=== PATIENT | male | born 1995 | race Caucasian/White ===

== ENCOUNTER 2019-09-11 10:52 | Day surgery (SDC) | payer OTHER, SELFPAY ==
[2014-04-11 15:57] VITALS: BMI 24.4
[2019-09-11] VITALS (8 sets, daily range): BP systolic 120–138; BP diastolic 53–90; PULSE 73–111; RESP 16–17; TEMP 36.8–37.3; O2SAT 92–100; BMI 27.7
--- NOTE | 2019-09-11 | APP_PTH ---
PATIENT: MANE TANG LOC: [facility] [place] U#:[id number] AGE/SX: 24/M ROOM: RE09/11/[address]: Dr. Alma Rosa Marinelli MD : 1995 BED: DIS: 09/11/2019 SPEC #: [id number] RECD: 09/11/19 17:00 STATUS: TEQUILA CHIP #: [id number] ZARIA: 09/11/19 00:[address]: Alma Rosa Marinelli DEPT: SURGICAL PATHOLOGY RECD BY: Luis Fernando Epsosito ENTERED: 09/12/19 07:50 SP TYPE: APPENDIX OTHR DR: Dr. Maksim Vegas III, MD Tissues: Appendix, NOS Procedures: Surgery Specimen Level III HEADER OPERATION: Laparoscopic appendectomy PRE-OP DIAGNOSIS: Acute appendicitis TISSUE SUBMITTED: Appendix MICROSCOPIC DIAGNOSIS Appendix: Acute appendicitis and periappendicitis. SJ:lucrecia 09/15/19 MICROSCOPIC DESCRIPTION Slides are reviewed. GROSS DESCRIPTION Received is one container labeled with the patient's name and designated appendix. The specimen consists of a vermiform appendix measuring 11 cm in length and 1 cm in average diameter. No gross perforations are evident. Serial sections reveal a patent lumen. Advanced Nursing Professor sections are submitted in one cassette. / AM:lucrecia 09/12/19 TC:2 CPT: 92674
--- NOTE | 2019-09-11 11:39 | CT_ITS ---
STUDY: CT ABDOMEN AND PELVIS WITH CONTRAST REASON FOR EXAM: Male, 24 years old. RLQ PAIN STARTED LAST NIGHT -- N/v, constipation RADIATION DOSAGE (If Supplied By Facility): CTDIvol = ( 12.35 ) mGy, DLP = ( 803.50 ) mGycm TECHNIQUE: Transaxial images were obtained from the dome of the diaphragm to the symphysis pubis without oral contrast. IV 100mL Isovue-300 was administered. Sagittal and coronal images were reconstructed. Individualized dose optimization techniques were used for this CT. COMPARISON: None. FINDINGS: Minimal degree of dependent bibasilar atelectasis. The visualized portions of the heart are within normal limits. Normal liver. Normal gallbladder and extrahepatic biliary system. Normal spleen. Normal pancreas. Normal bilateral adrenal glands. Normal right kidney. Normal left kidney. There is a small hiatal hernia. Normal small intestine. Normal colon. There is a tubular, thick-walled appendix (>7mm), consistent with acute appendicitis. The appendix is retrocecal sequel. Normal abdominal aorta. Normal inferior vena cava. There is borderline retroperitoneal lymphadenopathy with enlarged nodes no greater than 10mm in the short axis diameter. Normal urinary bladder. There is a small umbilical hernia containing fat. Normal osseous structures. CT/Abdomen/Pelvis W IV Cont ONLY IMPRESSION: Findings increased with acute appendicitis. The appendix is retrocecal. N.B. : The above information has been verbally conveyed by Ata Almanza to Cheryl Diamond on 09/11/2019 12:50:40 (ET). Electronically Signed: Ata Almanza, at 12:51 EST , Service support ,
--- NOTE | 2019-09-11 11:41 | ED.DCSUM_ITS ---
History of Present Illness Chief Complaint: Abd Pain Informant: Patient - Abdominal Pain/Flank Pain Onset: Yesterday Context: Gradual Onset Timing: Continuous Quality: Sharp Location: RLQ Maximum Severity: Severe Worsened by: Car ride, Movement Relieved by: Remaining Still - Nausea/Vomiting/Emesis GI Symptom: Nausea, Vomiting Onset: Yesterday - Diarrhea/Melena/Hematochezia GI Symptom: Negative for: Diarrhea, Melena, Hematochezia Narrative: Patient is a 24-year-old male with no significant past medical history presenting with 1 day of right lower quadrant abdominal pain. He states it started yesterday evening. It is been in his right lower quadrant. First it was intermittent but now it is been constant. Patient states it is worse when he tries to move or touches his abdomen. When he was driving irritates the bump in the road it significantly worsened the pain. He had 10 episodes of vomiting associated with this. He states he had one small bowel movement. He denies any blood in his vomit or his stool. He denies any associated fever. He is never had any pain like this before. He denies any other complaints at this time. Past Medical History - Allergies and Home Meds Allergies/Adverse Reactions: Allergies No Known Allergies Allergy (Verified 09/11/19 10:53) Past Medical History: None Surgical History: noncontributory Lives: With Family Smoking Status: Never smoker - Family History Maternal Family History: Reports: No pertinent history Review of Systems General: Denies: Chills, Fever, Sweats Eyes: Denies: Visual changes - bilaterally, Diplopia ENT: Denies: Rhinorrhea, Sore throat Cardiovascular: Denies: Chest pain, Palpitations Respiratory: Denies: Dyspnea, Cough, Dyspnea on exertion Gastrointestinal: Reports: Abdominal pain, Nausea, Vomiting, Constipation. Denies: Diarrhea, Melena, Hematochezia Genitourinary: Reports: - - No Testicular pain. Denies: Dysuria, Hematuria, Frequency Musculoskeletal: Denies: Back pain, Extremity Pain Skin: Denies: Rash, Wounds Neurological: Denies: Headache, Weakness, Numbness Physical Exam Vital Signs/Narrative: Vital Signs Temp Pulse Resp BP Pulse Ox 09/11/19 10:53 98.3 F 84 17 138/90 H 100 Inital Vital Signs reviewed: Yes General: Well nourished, Well developed, No Acute Distress Head: Normocephalic, Atraumatic Eyes: Perrl, EOMI ENT: Moist mucous membranes, No rhinorrhea Neck: Supple, Nontender Cardiovascular: Regular rate, Regular rhythm, No murmurs Respiratory: No distress, CTA bilaterally, Chest nontender Abdomen: Soft, Normal bowel sounds, Tender - RLQ, Rebound tenderness, Obturator sign, Rovsig's sign, - - Mildly distended. Negative for: Psoas sign Back: Nontender, Normal Inspection Extremities: Nontender, No edema Skin: Normal color, No rash Neurological: Alert, Oriented x3, Cranial nerves II-XII grossly intact, Normal Strength, Normal Sensation Psychological: Normal affect, Normal Mood Diagnostic/Tx/Re-eval Clinical Impression(s) from Imaging Studies Abdomen/Pelvis CT 09/11/19 11:39 IMPRESSION: Findings increased with acute appendicitis. The appendix is retrocecal. N.B. : The above information has been verbally conveyed by Ata Almanza to Cheryl Diamond on 09/11/2019 12:50:40 (ET). Electronically Signed: Ata Almanza, at 12:51 EST , Service support , ADDENDUM: 09/11/19 1258 IMPRESSION: Findings increased with acute appendicitis. The appendix is retrocecal. N.B. : The above information has been verbally conveyed by Ata Almanza to Cheryl Diamond on 09/11/2019 12:50:40 (ET). Electronically Signed: Ata Almanza, at 12:51 EST , Service support , Laboratory Data 09/11/19 09/11/19 11:54 11:54 WBC 21.0 H RBC 5.05 Hgb 14.6 Hct 42.6 MCV 84.4 MCH 28.9 MCHC 34.3 RDW Std Deviation 36.4 RDW Coeff of Argenis 12.1 Plt Count 234 MPV 9.8 Immature Gran % (Auto) 0.300 Neut % (Auto) 86.9 H Lymph % (Auto) 4.1 L [place] % (Auto) 8.6 Eos % (Auto) 0.0 Baso % (Auto) 0.1 Absolute Neuts (auto) 18.3 H Absolute Lymphs (auto) 0.86 Nucleated RBC % 0 Diff Path Review May foll Sodium 136 Potassium 3.9 Chloride 104 Carbon Dioxide 27.0 Anion Gap 5 BUN 13 Creatinine 0.90 Estim Creat Clear Calc 132.47 Est GFR (MDRD) Af Amer 130 Est GFR (MDRD) Non-Af 108 BUN/Creatinine Ratio 14.4 Glucose 132 H Calcium 9.3 Total Bilirubin 0.50 AST 14 L ALT 32 Alkaline Phosphatase 77 Total Protein 8.0 Albumin 4.4 Globulin 3.6 Albumin/Globulin Ratio 1.2 Lipase 116 - Medical Decision Making Patient is evaluated for 1 day of right lower quadrant la pain. Clinically he has acute appendicitis. Consulted surgery because of concerning physical exam. Lab work obtained is significant for leukocytosis but is otherwise normal. CT confirms appendicitis without evidence of abscess or rupture. Patient is evaluated in the ER by Dr. Marinelli who will take the patient to surgery shortly. Patient started on IV Zosyn. He is given initially 6 mg of IV morphine and then a second dose of 4 mg IV morphine for pain control emergency room. He is also given IV fluids and Zofran. Patient is agreeable with this plan. He stable for the OR at time of disposition. ED Disposition - Plan for ED Patient: Disposition: Acute [facility] Diagnosis: Acute appendicitis
[2019-09-11 11:59] LABS: Absolute Lymphocyte Count 0.86 X10^3/uL (0.83-4.51); Absolute Neutrophil Count 18.3 X10^3/uL (2.0-7.7); Basophil# 0.02 X10^3/uL; Basophil% 0.1 % (0-1); Hematocrit 42.6 % (40-54); Hemoglobin 14.6 g/dL (13.0-16.5); Lymphocyte # 0.86 X10^3/ul (4.0); Lymphocyte % 4.1 % (19-41); Mean Corp Hgb Conc 34.3 g/dL (32-36); Mean Corpuscular Hgb 28.9 pg (27.0-32.0); Mean Corpuscular Volume 84.4 fL (80-94); Mean Platelet Vol. 9.8 fl (6.2-12.0); Monocyte# 1.81 X10^3/uL; Monocyte% 8.6 % (0-10); NRBC Flagged by Analyzer 0 % (0-5); Neutrophil # 18.25 X10^3/uL (2.7-7.7); Neutrophil % 86.9 % (47-70); POSITIVE DIFFERENTIAL YES; Platelet Count 234 K/mm3 (150-450); RBC Distribution Width CV 12.1 % (11.6-14.6); RBC Distribution Width SD 36.4 fl (35.1-43.9); Red Blood Count 5.05 M/mm3 (4.6-6.2)
[2019-09-11 12:02] LABS: Differential Indicated SCAN CRITERIA MET
[2019-09-11] MEDS: Ondansetron 4 MG/2 ML Vial IV (12:08)
[2019-09-11] MEDS: Morphine 4 MG/ML Syringe 6 MG IV (12:08)
[2019-09-11] MEDS: 0.9% Normal Saline 1,000 ML 1000 ML IV (12:14)
[2019-09-11 12:16] LABS: ALB/GLOB Ratio 1.2 RATIO (0.9-2.4); AST(SGOT) 14 U/L (15-37); Alanine Aminotransfer ALT/SGPT 32 U/L (16-61); Albumin, Serum 4.4 g/dL (3.2-5.0); Alkaline Phosphatase 77 U/L (45-117); Anion Gap 5 (5-15); BUN 13 mg/dL (7-18); BUN/Creat Ratio 14.4 RATIO (10-20); Calcium,Total 9.3 mg/dL (8.5-10.1); Chloride 104 mmol/L (98-107); EST Glomerular Filtration Rate 108 mL/min (>60); Est Glom Filt Rate - Afr Amer 130 mL/min (>60); Estimated Creatinine Clearance 132.47 ml/min; Globulin 3.6 g/dL (2.2-4.2); Glucose 132 mg/dL (74-106); Lipase 116 U/L (73-393); Potassium 3.9 mmol/L (3.5-5.1); Sodium Level 136 mmol/L (136-145)
--- NOTE | 2019-09-11 12:55 | HP.PCM_ITS ---
History of Present Illness Date of Admission: 09/11/19 The patient is a 24 year old M presented to the ER due to right lower quadrant pain that started last night initially was intermittent and became constant. Patient was unable to sleep, did have nausea and vomiting last night. Patient last had any solid food about 7 PM last night. Patient had attempted to drink little bit of water today however just threw it up. On work-up patient CT abdomen pelvis is consistent with acute appendicitis, leukocytosis of 21. Zosyn 4.5 g IV x1 ordered in the ER for acute appendicitis. Patient did have a small bowel movement this morning. Past Medical History Allergies No Known Allergies Allergy (Verified 09/11/19 10:53) Home Medications: Ambulatory Orders Medication Instructions Recorded Oxycodone HCl/Acetaminophen 1 - 2 tablet PO Q4H PRN PRN #12 12/16/13 [Percocet 5/325] tablet Surgical History: - - Right elbow, left wrist Psychiatric History: No pertinent psych hx Lives: With Family Smoking Status: Never smoker Alcohol: Occasional Drugs: None - *Family History Maternal History Items: No pertinent history Review of Systems Constitutional: Reports: Anorexia Gastrointestinal: Reports: Abdominal Pain, Nausea, Vomiting VTE Information - Inpt Only VTE Present on Admission: Yes VTE Mechan Device Prophylaxis: SCD's - Physical Exam Vitals/I&O's: Vital Signs Temp Pulse Resp BP Pulse Ox 98.3 F 84 17 138/90 H 100 09/11/19 10:53 09/11/19 10:53 09/11/19 10:53 09/11/19 10:53 09/11/19 10:53 Oxygen Delivery Method Room Air Weight: 199 lb 1.239 oz Body Mass Index (BMI) 27.7 General: Alert, Oriented x3, Cooperative, No apparent distress HEENT: Atraumatic Lungs: Normal air movement Cardiovascular: Regular rate Abdomen: Soft, Tender - Right lower quadrant, positive Rovsing sign, equivocal rebound, no guarding Extremities: No clubbing, No cyanosis, No edema Neurological: Cranial nerves II-XII grossly intact Laboratory Results 09/11/19 11:54: WBC 21.0 H, RBC 5.05, Hgb 14.6, Hct 42.6, MCV 84.4, MCH 28.9, MCHC 34.3, RDW Std Deviation 36.4, RDW Coeff of Argenis 12.1, Plt Count 234, MPV 9.8, Immature Gran % (Auto) 0.300, Neut % (Auto) 86.9 H, Lymph % (Auto) 4.1 L, [place] % (Auto) 8.6, Eos % (Auto) 0.0, Baso % (Auto) 0.1, Absolute Neuts (auto) 18.3 H, Absolute Lymphs (auto) 0.86, Nucleated RBC % 0, Diff Path Review December09/11/19 11:54: Sodium 136, Potassium 3.9, Chloride 104, Carbon Dioxide 27.0, Anion Gap 5, BUN 13, Creatinine 0.90, Estim Creat Clear Calc 132.47, Est GFR (MDRD) Af Amer 130, Est GFR (MDRD) Non-Af 108, BUN/Creatinine Ratio 14.4, Glucose 132 H, Calcium 9.3, Total Bilirubin 0.50, AST 14 L, ALT 32, Alkaline Phosphatase 77, Total Protein 8.0, Albumin 4.4, Globulin 3.6, Albumin/Globulin Ratio 1.2, Lipase 116 Current Medications Piperacillin Sod/Tazobactam (Sod 3.375 gm/ Sodium Chloride) 50 mls @ 100 mls/hr IV X1 ONE Stop: 09/11/19 13:21 Assessment/Plan 24-year-old male with acute appendicitis 1. Discussed procedure laparoscopic appendectomy, possible open, possible bowel resection along with the risk but not limited to bleeding, infection/abscess, injury to another organ (small bowel, colon, etc.), adhesion, hernia at incision sites, and anesthesia. Patient no further questions this time. 4 OR about 3 PM today Alma Rosa Marinelli M.D. Pager: [phone] [facility] [address] [place] [address], [address] [place] [address] Office: [phone]
[2019-09-11] MEDS: Morphine 4 MG/ML Syringe IV (13:22)
[2019-09-11] MEDS: Bupiv/Epi 0.5% Mpf 30 ML Vial (14:33)
--- NOTE | 2019-09-11 15:39 | OP.PCM_ITS ---
Report of Operation Date of Procedure: 09/11/19 Pre-Operative Diagnosis: Acute appendicitis Post-Operative Diagnosis: Same Surgery/Procedure Performed:: Laparoscopic appendectomy Type of Anesthesia:: Local Anesthesiologist: Iban Benjamin Special Medications: Zosyn 3.375 g IV x1 given in the ER for acute appendicitis Specimen's removed: Appendix Estimated Blood Loss (mL): < 10 cc Fluids Replaced: 1300 cc Description of Procedure: Indications: 24-year-old male presented to the ER with new right lower quadrant pain last night. On workup he was found to have acute appendicitis on CT and a leukocytosis of 21. Patient was started on antibiotics in the ER for acute appendicitis-Zosyn 3.375 g IV x1 Description of the procedure: The patient was placed on operating table in supine position. General anesthesia was induced. A timeout was completed verifying correct patient, procedure, position and special equipment prior to beginning procedure. Abdomen was prepped and draped in usual sterile fashion. Incision was made in the natural skin line above the umbilicus with a 15 blade scalpel. The fascia was elevated and incised. Entry into the peritoneum was confirmed visually and no bowel was noted in the vicinity of the incision. The Enamorado trocar was placed under direct vision. Abdomen insufflated with a pressure of 12-15 mmHg. Patient tolerated insertion well. The scope was inserted and the abdomen inspected. No injuries from initial trocar placement were noted. Minimal amount of fluid was seen in the right lower quadrant. An direct visualization 2 -5 mm trocars were placed one above the symphysis pubis and below the hairline and one in the left lower quadrant lateral to the rectus muscle. Care is taken to avoid injury to the bladder and inferior epigastric vessels. The table was placed in Trendelenburg position with the right side elevated. The appendix was grasped with atraumatic grasper and elevated. It was noted to be inflamed. The small amount of purulent material in the right pericolic gutter. This was suctioned. A window was developed in the mesoappendix at the point between the base of the appendix and the cecum. An endoscopic 45 mm linear cutting stapler blue load was then used to divide and staple the base of the appendix. Enseal was used to divide the mesoappendix The appendix was withdrawn into the Enamorado trocar after being placed endoscopically retrieval bag. Appendix was sent to pathology. The appendiceal stump was then irrigated and hemostasis was assured. Fluid was suctioned no other pathology was identified. Secondary trochars were removed under direct visualization. No bleeding was noted trocar sites. The laparoscope withdrawn and the umbilical trocar removed. The abdomen was allowed to collapse. Local anesthesia of 25 mL of 0.5% Marcaine was used at the incision sites. The umbilical trocar site was closed with the [id number] 0 Vicryl suture. The skin was closed up to clear sutures of 4-0 Monocryl and Steri-Strips. The patient was extubated. The patient tolerated the procedure well and was jaclyn en to the postanesthesia care unit in satisfactory condition. - Complications None Code Visit [id number]: [id number] Laparoscopy appendectomy
--- NOTE | 2019-09-11 15:44 | PCM.DC.APPY ---
Discharge Diet: Light diet - advance as tolerated Discharge Activity: May not drive while taking narcotic pain medications. May shower in (days): 1 Lifting Restrictions: No lifting greater than 20 pounds x 3 weeks no strenuous exercise for 5 wks Call your doctor if your incision/area has: Continuous Slow Oozing, Sudden Increased Bleeding, Increased Pain/ Swelling, Increased Redness, Foul Smelling Discharge, Swelling at the incision site Call your doctor if you observe: Fever of 101 or Higher Remove Dressing in (days):: 1 - Okay to remove OpSite tomorrow, put Steri-Strips down for 7 to 10 days did not fall off in 10 days okay to remove Additional Instructions: Okay to take ibuprofen 400-600 mg PO q6hr PRN along with the Percocet. Avoid Tylenol since there is already Tylenol in the Percocet. Take all pain meds with food. Percocet can cause constipation recommend taking daily stool softener (i.e. Colace/docusate) while taking the pain meds. Recommend starting some MiraLAX in 1 to 2 days if no bowel movement. If still no bowel movement following day recommend taking magnesium citrate half the bottle and waiting 4-6 hours if still no results take the other half the bottle. Medications to take at Discharge Oxycodone HCl/Acetaminophen [Percocet 5/325] 1 - 2 tablet PO Q6H PRN PRN 4 Days #20 tablet 09/11/19 Allergies/Adverse Reactions: Allergies No Known Allergies Allergy (Verified 09/11/19 10:53) The following prescriptions were given: Oxycodone HCl/Acetaminophen [Percocet 5/325] 1 - 2 tablet PO Q6H PRN PRN 4 Days #20 tablet PRN Reason: Pain Transmission Status: Sent to [facility] Primary Care Physician: Maksim Vegas III, MD [Primary Care Provider] - Test Results: Test results from this visit will be discussed in further detail at your follow-up appointment, if applicable. Please Follow Up With: Alma Rosa Marinelli MD - After 5 PM and on the weekends call [phone] with any concerns When: Call the office for follow-up appointment in 2 weeks. Proposed Discharge Date: 09/11/19
[2019-09-11] MEDS: Lactated Ringers 1,000 ML 100 ML IV (16:28)
[2019-09-12 13:43] LABS: Pathologist Review Reviewed
== END 2019-09-11 17:31 | disposition home or self-care (01) ==
LOC: ED 12:45 → SDC 13:35
PROVIDERS: Emergency Provider Emergency Medicine; PCP Family Medicine; Visit Provider Surgery
PROC: 0DTJ4ZZ Resection of Appendix, Percutaneous Endoscopic Approach (ICD-10-PCS; CPT 44970; principal; 2019-09-11 15:00)
DX: K35.80 Unspecified acute appendicitis (principal)
CPT/HCPCS: 44970; 74177; 80053; 83690; 85025; 88304; 99284; J7030; J7120; Q9967; A4216; J2405

== ENCOUNTER 2023-04-16 23:21 | Emergency (ER) | payer OTHER, SELFPAY ==
[2023-04-16 23:23] VITALS: BP 156/97; PULSE 102; RESP 16; TEMP 35.8; O2SAT 96; BMI 28.7
[2023-04-17] MEDS: 0.9% Normal Saline 1,000 ML 999 ML IV (00:15)
[2023-04-17 00:16] LABS: Absolute Lymphocyte Count 2.56 X10^3/uL (0.83-4.51); Basophil# 0.07 X10^3/uL; Basophil% 0.9 % (0-1); Eosinophil# 0.24 X10^3/uL; Hematocrit 46.4 % (40-54); Hemoglobin 15.7 g/dL (13.0-16.5); Lymphocyte # 2.56 X10^3/ul (0.83-4.51); Lymphocyte % 32.2 % (19-41); Mean Corp Hgb Conc 33.8 g/dL (32-36); Mean Corpuscular Hgb 29.6 pg (27.0-32.0); Mean Corpuscular Volume 87.5 fL (80-94); Mean Platelet Vol. 9.8 fl (6.2-12.0); Monocyte# 0.95 X10^3/uL; Monocyte% 11.9 % (0-10); NRBC Flagged by Analyzer 0 % (0-5); Neutrophil # 4.03 X10^3/uL (2.7-7.7); Neutrophil % 50.7 % (47-70); Platelet Count 257 K/mm3 (150-450); RBC Distribution Width CV 11.9 % (11.6-14.6); RBC Distribution Width SD 38.4 fl (35.1-43.9)
[2023-04-17 00:42] LABS: Anion Gap 4 (5-15); BUN 14 mg/dL (7-18); Calcium,Total 9.8 mg/dL (8.5-10.1); Chloride 104 mmol/L (98-107); Creatinine, Serum 1.17 mg/dL (0.70-1.30); EST Glomerular Filtration Rate 78 mL/min (>60); Est Glom Filt Rate - Afr Amer 94 mL/min (>60); Estimated Creatinine Clearance 98.33 ml/min; Glucose 114 mg/dL (74-106); Magnesium 2.4 mg/dL (1.6-2.6); Potassium 3.4 mmol/L (3.5-5.1); Sodium Level 140 mmol/L (136-145); Thyroid Stim Hormone (TSH) 4.45 uIU/mL (0.358-3.74)
--- NOTE | 2023-04-17 01:16 | EX.ED.DYSGE1 ---
HPI History of Present Illness Chief Complaint: Palpitations Informant: patient Narrative Narrative: Patient is a 28-year-old male who states that intermittently throughout the day today he felt like his heart was beating abnormally. He states would last for a few minutes and then resolved he did not think much of it. However this evening he was laying in bed he felt like it was persisting and therefore presents for evaluation. He states that his father has a history of normal heart rhythm. He denies any excessive stimulant use or illicit drug use. [facility] Medical History Acute appendicitis Elbow fracture, right Left wrist injury Home Medications NK 09/25/19 [History Last Taken Unknown] Allergy/AdvReac Type Severity Reaction Status Date / Time No Known Allergies Allergy Verified 02/26/23 07:31 Family History (Updated 02/26/23 @ 07:[address] Marbella Forrester MD) Grandfather Lung cancer Grandmother CVA (cerebral vascular accident) Grandmother Kidney disease Grandfather Lupus Myocardial infarction Surgical History H/O elbow surgery H/O wrist surgery Hx of appendectomy Social History (Updated 02/26/23 @ 07:[address] Marbella Forrester MD) household members: spouse and children housing: house number of children: 2 current occupational status: employed current occupation: [employer] pets and animals: No Smoking Status: Never smoker Electronic Cigarette Use: not used alcohol intake: current alcohol intake frequency: a few times a week substance use type: does not use caffeine: Yes what type of physical activity do you participate in: walking frequency: 3-4 times per week seatbelt use: always do you feel safe at home: Yes ROS ROS ED Constitutional Constitutional ED: Denies chills or fever(s) ENT ENT ED: Denies sore throat Cardiovascular Cardiovascular: Reports palpitations and racing heartbeat; Denies chest pain Respiratory/Chest Respiratory/Chest: Denies cough or dyspnea Gastrointestinal Gastrointestinal: Denies abdominal pain, diarrhea, nausea or vomiting Genitourinary Genitourinary ED: Denies dysuria Musculoskeletal Musculoskeletal: Denies myalgias Integumentary Denies rash Neurologic Neurologic: Denies headache(s) Hematologic/Lymphatic Hematologic/Lymphatic: Denies easy bleeding or easy bruising EXAM Physical Exam Const Vital Signs: 04/16/23 23:23 04/16/23 23:23 04/17/23 01:21 Temperature 96.5 F L 96.5 F L Temperature Source Temporal Temporal Pulse Rate 102 H 102 H 89 Respiratory Rate 16 16 18 Blood Pressure 156/97 H 156/97 H 137/89 H Blood Pressure Mean 116 116 Pulse Ox 96 96 95 Oxygen Delivery Method Room Air Room Air Positive well nourished and well developed General Appearance ED: well developed HEENT HEENT Narrative: Normocephalic atraumatic Eyes PERRL and EOMs intact bilaterally Neck supple Neck Narrative: No nodule or goiter noted along the thyroid Chest Wall palpation of chest normal Chest Narrative: No bony deformity or crepitance noted Resp normal respiratory effort and clear to auscultation bilaterally Cardio regular rate and regular rhythm Rate: other Other Details: Heart is regular rate and rhythm without murmurs rubs or gallops Carotid and radial pulses are equal and symmetric No ectopy noted GI normal to inspection, nondistended, normoactive bowel sounds, non-tender, non-distended and no masses Auscultation: normoactive bowel sounds Palpation: soft Extremity normal to inspection Extremity Narrative: No asymmetric edema no pitting edema negative Homans' sign bilaterally Neuro oriented x3, CN's II-XII intact bilaterally and no sensory deficits noted Sensorium / Orientation: alert Motor Exam: strength 5/5 throughout Psych mental status grossly normal Skin no rashes or lesions noted MDM MDM MDM Narrative Medical decision making narrative: #To the ER to slightly tachycardic but otherwise with stable vitals. He reported a family history of an abnormal heart rhythm and his father but otherwise denied any excessive stimulant use or illicit drug use which could be the cause of his symptoms. EKG showed normal sinus rhythm without dysrhythmia or ectopy. Differential diagnosis is for paroxysmal atrial flutter versus atrial fibrillation versus SVT versus electrolyte derangement or acute blood loss anemia. Basic labs were obtained which revealed no clinically significant finding. Patient was kept on the monitor in the ER and there was no dysrhythmia noted. Therefore at this time with stable vitals and normal laboratory values and no dysrhythmia noted on cardiac monitoring there is no need for patient to be monitored any further in the hospital and is otherwise safe for discharge. History & Record Review Discussion w/independent historian: Patient Lab Data Attestation: I reviewed the patient's lab results. Labs: Laboratory Results - last 24 hr 04/16/23 23:30 WBC 8.0 RBC 5.30 Hgb 15.7 Hct 46.4 MCV 87.5 MCH 29.6 MCHC 33.8 RDW Std Deviation 38.4 RDW Coeff of Argenis 11.9 Plt Count 257 MPV 9.8 Immature Gran % (Auto) 1.300 H Neut % (Auto) 50.7 Lymph % (Auto) 32.2 [place] % (Auto) 11.9 H Eos % (Auto) 3.0 Baso % (Auto) 0.9 Absolute Neuts (auto) 4.0 Absolute Lymphs (auto) 2.56 Nucleated RBC % 0 Sodium 140 Potassium 3.4 L Chloride 104 Carbon Dioxide 32.0 Anion Gap 4 L BUN 14 Creatinine 1.17 Estim Creat Clear Calc 98.33 Est GFR (MDRD) Af Amer 94 Est GFR (MDRD) Non-Af 78 BUN/Creatinine Ratio 12.0 Glucose 114 H Calcium 9.8 Magnesium 2.4 TSH 4.45 H Discharge Plan Triage Chief Complaint: Palpitations ED Provider: Guanaco Damian Dx/Rx/DC Orders Clinical Impression: Heart palpitations Instructions: ED Palpitations Prescriptions: No Action NK Primary Care Provider: Marbella Forrester Referrals: Marbella Forrester MD [Primary Care Provider] - Ranjeet Antoine MD [Med Staff - Active Staff] - Activity Restrictions/Additional Instructions: Your work-up today did not show any abnormal heart rhythm. However you may go into and out of this and we did not catch it today. Therefore follow-up with your family doctor to discuss possible Holter monitor for prolonged heart monitoring evaluation. Please return to the ER should you have any further concerns Disposition Disposition: Home, Self Care Discharge Date/Time: 04/17/23 01:24
[2023-04-17 01:21] VITALS: BP 137/89; PULSE 89; RESP 18; O2SAT 95
== END 2023-04-17 01:24 | disposition home or self-care (01) ==
PROVIDERS: Emergency Provider Emergency Medicine; PCP Internal Medicine; Visit Provider Emergency Medicine
DX: R00.2 Palpitations (principal); Z90.49 Acquired absence of other specified parts of digestive tract
CPT/HCPCS: 80048; 83735; 84443; 85025; 93005; 96360; 99283

== ENCOUNTER → 2023-05-08 | Outpatient (CLI) | payer OTHER, SELFPAY ==
--- NOTE | 2023-05-08 08:56 | RAD_ITS ---
STUDY: X-RAY CHEST REASON FOR EXAM: Male, 28 years old. Chest pain. TECHNIQUE: PA and lateral views of the chest. COMPARISON: None. FINDINGS: The lungs are clear and expanded. There is no demonstrated pleural abnormality. Normal size heart. Normal mediastinum and sloane. Normal visualized pulmonary arteries. Normal visualized aortic arch and descending thoracic aorta. Normal visualized thoracic spine. Normal visualized ribs, clavicles, and shoulders. There is no demonstrated abnormality of the visualized soft tissue structures of the upper abdomen. RAD/Chest PA and Lateral IMPRESSION: Normal x-ray examination of the chest. Electronically Signed: Ata Almanza MD at 12:32 EDT ,
[2023-05-08 12:28] LABS: Erythrocyte Sedimentation Rate 4 mm/hr (0-20)
[2023-05-08 12:30] LABS: D-Dimer Quantitative (DVT/PE) < 0.27 FEU/ug/m (0.27-0.49)
[2023-05-08 12:33] LABS: Absolute Lymphocyte Count 1.45 X10^3/uL (0.83-4.51); Absolute Neutrophil Count 2.9 X10^3/uL (2.0-7.7); Basophil# 0.04 X10^3/uL; Basophil% 0.8 % (0-1); Eosinophil# 0.09 X10^3/uL; Eosinophils% 1.8 % (0-5); Hematocrit 47.8 % (40-54); Hemoglobin 15.8 g/dL (13.0-16.5); Lymphocyte # 1.45 X10^3/ul (0.83-4.51); Lymphocyte % 28.5 % (19-41); Mean Corp Hgb Conc 33.1 g/dL (32-36); Mean Corpuscular Hgb 29.4 pg (27.0-32.0); Mean Platelet Vol. 10.3 fl (6.2-12.0); Monocyte# 0.58 X10^3/uL; Monocyte% 11.4 % (0-10); NRBC Flagged by Analyzer 0 % (0-5); Neutrophil # 2.92 X10^3/uL (2.7-7.7); Neutrophil % 57.3 % (47-70); Platelet Count 258 K/mm3 (150-450); RBC Distribution Width CV 12.1 % (11.6-14.6); RBC Distribution Width SD 38.5 fl (35.1-43.9); Red Blood Count 5.37 M/mm3 (4.6-6.2); White Blood Count 5.1 K/mm3 (4.4-11.0)
[2023-05-08 12:49] LABS: ALB/GLOB Ratio 1.1 RATIO (0.9-2.4); AST(SGOT) 16 U/L (15-37); Alanine Aminotransfer ALT/SGPT 46 U/L (16-61); Alkaline Phosphatase 72 U/L (45-117); Anion Gap 7 (5-15); BUN 15 mg/dL (7-18); BUN/Creat Ratio 16.7 RATIO (10-20); CPK Total, Creatine Kinase 99 U/L (39-308); CRP < 2.90 mg/L (0.0-3.0); Calcium,Total 9.4 mg/dL (8.5-10.1); Chloride 107 mmol/L (98-107); EST Glomerular Filtration Rate 105 mL/min (>60); Est Glom Filt Rate - Afr Amer 128 mL/min (>60); Globulin 3.8 g/dL (2.2-4.2); Glucose 117 mg/dL (74-106); Protein, Total 7.8 g/dL (6.4-8.2); Sodium Level 138 mmol/L (136-145); Thyroid Stim Hormone (TSH) 1.11 uIU/mL (0.358-3.74)
[2023-05-09 11:08] LABS: ANTINUCLEAR ANTIBODIES DIRECT Negative (Negative)
[2023-05-09 17:06] LABS: Hemoglobin A1c 5.3 % (3.8-5.6)
== END | disposition home or self-care (01) ==
PROVIDERS: PCP Internal Medicine; Referring Provider Internal Medicine; Visit Provider Internal Medicine
DX: R07.9 Chest pain, unspecified (principal); R73.09 Other abnormal glucose
CPT/HCPCS: 36415; 71046; 80053; 82550; 83036; 84443; 85025; 85379; 85652; 86038; 86140; 86225; 86235

== ENCOUNTER → 2023-06-20 | Outpatient (CLI) | payer OTHER, SELFPAY ==
--- NOTE | 2023-06-20 06:47 | CT_ITS ---
INDICATION: Chest pain x2 3 months EXAMINATION: CT CHEST WITH CONTRAST - CT Chest W/ Contrast Injection TECHNIQUE: Helically acquired images were obtained of the chest following IV contrast. A radiation dose optimization technique was used for this scan. IV Contrast dosage and agent: 100 mL [id number] contrast COMPARISON: Plain film from 05/08/2023 FINDINGS: LUNGS, PLEURA AND LARGE AIRWAYS: No masses, consolidation, or edema. No pleural effusion or thickening. No pneumothorax. THYROID: No thyroid lesions. HEART AND PERICARDIUM: Heart size is normal. No pericardial effusion. VESSELS: Thoracic aorta is not dilated. No aortic dissection. No obvious central pulmonary embolism although this study was not performed with the pulmonary embolism protocol. MEDIASTINUM AND BARBARA: No mediastinal or hilar adenopathy. Esophagus is unremarkable. No hiatal hernia. UPPER ABDOMEN: No acute pathology. BONES: No suspicious lytic or blastic abnormality. CT/Chest WITH Contrast IMPRESSION: Negative contrast enhanced CT of the chest. Electronically Signed: Perry Harmon MD at 10:50 EST ,
== END | disposition home or self-care (01) ==
LOC: CT 06:47
PROVIDERS: PCP Internal Medicine; Referring Provider Internal Medicine; Visit Provider Internal Medicine
DX: R07.9 Chest pain, unspecified (principal)
CPT/HCPCS: 71260; Q9967

== ENCOUNTER → 2024-12-23 | Outpatient (CLI) | payer OTHER, SELFPAY ==
--- NOTE | 2024-12-23 12:33 | RAD_ITS ---
PROCEDURE: CHEST PA AND LATERAL 12/23/2024 REASON FOR EXAM: COUGH TECHNIQUE: Frontal and lateral views of the chest. COMPARISON: Chest x-ray of 05/08/2023 RAD/Chest PA and Lateral IMPRESSION: Lungs appear clear of acute disease, and unchanged. No pleural effusion or pneumothorax is noted. The cardiomediastinal silhouette is within the normal range, and unchanged. No significant osseous abnormality is noted. Negative examination. Reading Location: [place] [id number]
== END | disposition home or self-care (01) ==
PROVIDERS: PCP Internal Medicine; Referring Provider Physician Assistant; Visit Provider Physician Assistant
DX: R05.9 Cough, unspecified (principal)
CPT/HCPCS: 71046